=== PATIENT | male | born 1990 | race Caucasian/White ===

== ENCOUNTER 2017-06-28 17:19 | Emergency (ER) | payer OTHER ==
[~2017-06-28] VITALS: Ht 180.3 cm; Wt 61.2 kg
[~2017-06-28 17:19] MED LIST: LORTAB 5 OR; NO HOME MEDS
[2017-06-28] MEDS ORDERED: ASPERCREME LIDOCA41 TOP (18:14)
[2017-06-28] MEDS ORDERED: MOTRIN400 MG PO (18:14)
[2017-06-28 18:25] VITALS: BP 126/81
== END 2017-06-28 18:25 | disposition home or self-care (01) | DRG 605 ==
LOC: ED 17:19
DX: S40.011A Contusion of right shoulder, initial encounter (principal); M25.511 Pain in right shoulder; S43.401A Unspecified sprain of right shoulder joint, initial encounter; V89.0XXA Person injured in unspecified motor-vehicle accident, nontraffic, initial encounter; Y92.410 Unspecified street and highway as the place of occurrence of the external cause